=== PATIENT | male | born 1935 | race Caucasian/White ===

== ENCOUNTER 2022-01-01 18:42 | Inpatient (IN) ==
[2022-01-01] MEDS ORDERED: Fluticasone Propionate Nasal 50 MCG/SPRAY BOTTLE NS PRN (22:52)
[2022-01-01] MEDS ORDERED: VISINE TEARS DROPS 15 ML BOTH EYES PRN (22:52)
[2022-01-02] MEDS: *HR* Metformin 500 MG TABLET PO SCH ×2 (08:07→16:16)
[2022-01-02] MEDS: Loratadine 10 MG TABLET PO SCH (09:58)
[2022-01-02] MEDS: Aspirin Enteric Coated 81 MG Tablet PO SCH (09:58)
[2022-01-02] MEDS: Carbidopa/Levodopa 25/100 TABLET PO SCH ×3 (09:59→22:35)
[2022-01-02] MEDS: Fish Oil Omega-3 Softgel PO SCH (10:03)
[2022-01-02] MEDS: Cholecalciferol (D-3) 1,000 UNIT (25MCG) TABLET PO SCH (10:03)
[2022-01-02] MEDS: *HR* Rivaroxaban 15 MG TABLET PO SCH (10:03)
[2022-01-02] MEDS: Losartan/HCTZ 50-12.5 TABLET PO SCH (10:03)
[2022-01-02] MEDS ORDERED: *HR* LORazepam 0.5 MG TABLET PO PRN (14:33)
[2022-01-02] MEDS: Cefdinir 300 MG CAPSULE PO SCH ×2 (16:12→22:35)
[2022-01-02] MEDS ORDERED: *HR* LORazepam 2 MG/ML VIAL IVP ONE (18:19)
[2022-01-02] MEDS ORDERED: *HR* LORazepam 2 MG/ML VIAL ONE (18:22)
[2022-01-03] MEDS ORDERED: Haloperidol Lactate 5 MG/ML VIAL IVP ONE (03:09)
[2022-01-03 08:16] LABS: Basophils % 0.3 %; Eosinophils # 0.1 K/mcL (0.0-0.6); Eosinophils % 1.9 %; Hematocrit 44.6 % (37.5-50.1); Hemoglobin 14.5 g/dL (12.9-16.9); Immature Granulocytes % 0.6 % (0-4); Lymphocytes # 1.4 K/mcL (0.6-4.6); Lymphocytes % 20.5 %; Mean Corpuscular HGB Conc 32.5 g/dL (31.6-35.5); Mean Corpuscular Hemoglobin 26.1 pg (28.0-33.3); Mean Corpuscular Volume 80.4 fL (83.0-100.0); Mean Platelet Volume 10.9 fL (9.4-12.4); Monocytes # 0.6 K/mcL (0.0-1.3); Monocytes % 9.3 %; Neutrophils # 4.6 K/mcL (1.6-8.9); Platelet Count 159 K/mcL (140-400); Red Blood Count 5.55 M/mcL (4.19-5.50); Segmented Neutrophils % 67.4 %; White Blood Count 6.8 K/mcL (4.3-11.1)
[2022-01-03 08:46] LABS: BUN/Creatinine Ratio 30 (6-26); Blood Urea Nitrogen 32 mg/dL (8-23); Calcium 9.4 mg/dL (8.6-10.3); Carbon Dioxide 27 mEq/L (23-29); Chloride 107 mEq/L (98-107); Glucose 97 mg/dL (70-105); Osmolality,Calculated 301 (280-300); Potassium 3.5 mEq/L (3.5-5.1); Sodium 142 mEq/L (136-145); eGFR For African Americans > 60 (> 60); eGFR For Non-African Americans > 60 (> 60)
[2022-01-03] MEDS: *HR* Rivaroxaban 15 MG TABLET PO SCH (10:10)
[2022-01-03] MEDS: Carbidopa/Levodopa 25/100 TABLET PO SCH ×3 (10:10→19:56)
[2022-01-03] MEDS: Aspirin Enteric Coated 81 MG Tablet PO SCH (10:10)
[2022-01-03] MEDS: Losartan/HCTZ 50-12.5 TABLET PO SCH (10:10)
[2022-01-03] MEDS: Loratadine 10 MG TABLET PO SCH (10:11)
[2022-01-03] MEDS: Cholecalciferol (D-3) 1,000 UNIT (25MCG) TABLET PO SCH (10:11)
[2022-01-03] MEDS: Cefdinir 300 MG CAPSULE PO SCH ×2 (10:11→19:55)
[2022-01-03] MEDS: *HR* Metformin 500 MG TABLET PO SCH ×2 (10:13→17:54)
[2022-01-03] MEDS: Fish Oil Omega-3 Softgel PO SCH (10:15)
[2022-01-03] MEDS ORDERED: *HR* Dextrose 50 % in Water (Syg) 50 ML SYRINGE IVP PRN (11:37)
[2022-01-03] MEDS ORDERED: Dextrose 4 GM Chewable Tablets PO PRN ×2 (11:37)
[2022-01-03] MEDS ORDERED: D5% in Water 1,000 ML IVC PRN (11:37)
[2022-01-03] MEDS: Insulin LISPRO 300 UNITS/3 ML VIAL SUBQ SCH ×2 (17:46→19:59)
[2022-01-03] MEDS: QUEtiapine Fumarate 25 MG TABLET PO SCH (20:01)
[2022-01-04] MEDS: Insulin LISPRO 300 UNITS/3 ML VIAL SUBQ SCH ×4 (07:32→20:09)
[2022-01-04] MEDS: Aspirin Enteric Coated 81 MG Tablet PO SCH (08:47)
[2022-01-04] MEDS: Loratadine 10 MG TABLET PO SCH (08:48)
[2022-01-04] MEDS: Cefdinir 300 MG CAPSULE PO SCH ×2 (08:48→20:07)
[2022-01-04] MEDS: Losartan/HCTZ 50-12.5 TABLET PO SCH (08:48)
[2022-01-04] MEDS: Carbidopa/Levodopa 25/100 TABLET PO SCH ×3 (08:48→20:08)
[2022-01-04] MEDS: *HR* Metformin 500 MG TABLET PO SCH ×2 (08:49→16:47)
[2022-01-04] MEDS: Cholecalciferol (D-3) 1,000 UNIT (25MCG) TABLET PO SCH (08:49)
[2022-01-04] MEDS: *HR* Rivaroxaban 15 MG TABLET PO SCH (08:50)
[2022-01-04] MEDS: Fish Oil Omega-3 Softgel PO SCH (08:51)
[2022-01-04] MEDS: QUEtiapine Fumarate 25 MG TABLET PO SCH (20:07)
[2022-01-04 21:57] LABS: Bilirubin,Urine Negative (Negative); Blood,Urine Trace-intact (Negative); Clarity,Urine Clear (Clear); Color,Urine Yellow (Yellow); Glucose,Urine (UA) Normal (Normal); Ketones,Urine Negative (Negative); Leukocyte Esterase,Urine Negative (Negative); Nitrite,Urine Negative (Negative); PH,Urine 5.5 pH Units (5.0-8.0); Protein,Urine >=300 mg/dL (Neg-Trace); Specific Gravity,Urine 1.025 (1.010-1.025); Urobilinogen,Urine Normal (Normal)
[2022-01-04 22:17] LABS: Granular Casts,Urine Few per lpf (None Seen)
[2022-01-05] MEDS: Insulin LISPRO 300 UNITS/3 ML VIAL SUBQ SCH ×4 (08:07→20:17)
[2022-01-05] MEDS: Losartan/HCTZ 50-12.5 TABLET PO SCH (09:38)
[2022-01-05] MEDS: Carbidopa/Levodopa 25/100 TABLET PO SCH ×3 (09:39→20:17)
[2022-01-05] MEDS: *HR* Metformin 500 MG TABLET PO SCH ×2 (09:39→15:36)
[2022-01-05] MEDS: Cefdinir 300 MG CAPSULE PO SCH ×2 (09:39→20:17)
[2022-01-05] MEDS: Cholecalciferol (D-3) 1,000 UNIT (25MCG) TABLET PO SCH (09:40)
[2022-01-05] MEDS: Loratadine 10 MG TABLET PO SCH (09:40)
[2022-01-05] MEDS: Fish Oil Omega-3 Softgel PO SCH (09:47)
[2022-01-05] MEDS: *HR* Rivaroxaban 15 MG TABLET PO SCH (10:00)
[2022-01-05] MEDS: Aspirin Enteric Coated 81 MG Tablet PO SCH (10:00)
[2022-01-05 10:28] LABS: Basophils % 0.5 %; Eosinophils # 0.2 K/mcL (0.0-0.6); Hematocrit 46.9 % (37.5-50.1); Hemoglobin 14.8 g/dL (12.9-16.9); Immature Granulocytes % 1.1 % (0-4); Lymphocytes # 2.1 K/mcL (0.6-4.6); Lymphocytes % 28.6 %; Mean Corpuscular HGB Conc 31.6 g/dL (31.6-35.5); Mean Corpuscular Hemoglobin 25.9 pg (28.0-33.3); Mean Platelet Volume 11.7 fL (9.4-12.4); Monocytes # 0.6 K/mcL (0.0-1.3); Monocytes % 8.6 %; Neutrophils # 4.3 K/mcL (1.6-8.9); Platelet Count 196 K/mcL (140-400); Red Blood Count 5.72 M/mcL (4.19-5.50); Red Cell Distribution Width 14.2 % (11.5-14.5); Segmented Neutrophils % 58.2 %; White Blood Count 7.3 K/mcL (4.3-11.1)
[2022-01-05 10:48] LABS: Calcium 9.7 mg/dL (8.6-10.3); Potassium 3.8 mEq/L (3.5-5.1)
[2022-01-05] MEDS: Acetaminophen 325 MG TABLET PO PRN (15:36)
[2022-01-05] MEDS: QUEtiapine Fumarate 25 MG TABLET PO SCH (20:17)
[2022-01-06] MEDS: Insulin LISPRO 300 UNITS/3 ML VIAL SUBQ SCH ×4 (07:14→20:40)
[2022-01-06 07:32] LABS: Hematocrit 40.8 % (37.5-50.1); Hemoglobin 13.2 g/dL (12.9-16.9); Mean Corpuscular HGB Conc 32.4 g/dL (31.6-35.5); Mean Corpuscular Hemoglobin 26.1 pg (28.0-33.3); Mean Corpuscular Volume 80.8 fL (83.0-100.0); Mean Platelet Volume 11.3 fL (9.4-12.4); Platelet Count 167 K/mcL (140-400); Red Blood Count 5.05 M/mcL (4.19-5.50); Red Cell Distribution Width 13.9 % (11.5-14.5); White Blood Count 5.5 K/mcL (4.3-11.1)
[2022-01-06] MEDS: Acetaminophen 325 MG TABLET PO PRN (08:36)
[2022-01-06] MEDS: Losartan/HCTZ 50-12.5 TABLET PO SCH (08:36)
[2022-01-06] MEDS: Loratadine 10 MG TABLET PO SCH (08:36)
[2022-01-06] MEDS: Cefdinir 300 MG CAPSULE PO SCH (08:36)
[2022-01-06] MEDS: *HR* Metformin 500 MG TABLET PO SCH ×2 (08:37→15:39)
[2022-01-06] MEDS: Cholecalciferol (D-3) 1,000 UNIT (25MCG) TABLET PO SCH (08:37)
[2022-01-06] MEDS: Carbidopa/Levodopa 25/100 TABLET PO SCH ×3 (08:37→21:19)
[2022-01-06] MEDS: Fish Oil Omega-3 Softgel PO SCH (08:47)
[2022-01-06 09:34] LABS: BUN/Creatinine Ratio 29 (6-26); Blood Urea Nitrogen 38 mg/dL (8-23); Calcium 9.3 mg/dL (8.6-10.3); Carbon Dioxide 29 mEq/L (23-29); Chloride 105 mEq/L (98-107); Glucose 90 mg/dL (70-105); Osmolality,Calculated 301 (280-300); Potassium 3.7 mEq/L (3.5-5.1); Sodium 141 mEq/L (136-145); eGFR For African Americans > 60 (> 60); eGFR For Non-African Americans 52 (> 60)
[2022-01-06] MEDS: QUEtiapine Fumarate 25 MG TABLET PO SCH (21:19)
[2022-01-07] MEDS: Losartan/HCTZ 50-12.5 TABLET PO SCH (08:27)
[2022-01-07] MEDS: *HR* Metformin 500 MG TABLET PO SCH ×2 (08:27→17:50)
[2022-01-07] MEDS: Cholecalciferol (D-3) 1,000 UNIT (25MCG) TABLET PO SCH (08:28)
[2022-01-07] MEDS: Carbidopa/Levodopa 25/100 TABLET PO SCH ×3 (08:28→22:10)
[2022-01-07] MEDS: Loratadine 10 MG TABLET PO SCH (08:28)
[2022-01-07] MEDS: Fish Oil Omega-3 Softgel PO SCH (08:28)
[2022-01-07] MEDS: Aspirin Enteric Coated 81 MG Tablet PO SCH (08:29)
[2022-01-07] MEDS: Insulin LISPRO 300 UNITS/3 ML VIAL SUBQ SCH ×4 (08:29→22:11)
[2022-01-07 08:55] LABS: Hematocrit 44.3 % (37.5-50.1); Hemoglobin 14.4 g/dL (12.9-16.9); Mean Corpuscular HGB Conc 32.5 g/dL (31.6-35.5); Mean Corpuscular Hemoglobin 26.3 pg (28.0-33.3); Platelet Count 204 K/mcL (140-400); Red Blood Count 5.47 M/mcL (4.19-5.50); Red Cell Distribution Width 13.8 % (11.5-14.5); White Blood Count 7.1 K/mcL (4.3-11.1)
[2022-01-07] MEDS: QUEtiapine Fumarate 25 MG TABLET PO SCH (22:10)
[2022-01-08] MEDS: Insulin LISPRO 300 UNITS/3 ML VIAL SUBQ SCH ×4 (11:24→21:22)
[2022-01-08] MEDS: Losartan/HCTZ 50-12.5 TABLET PO SCH (11:43)
[2022-01-08] MEDS: Carbidopa/Levodopa 25/100 TABLET PO SCH ×3 (11:43→21:24)
[2022-01-08] MEDS: *HR* Metformin 500 MG TABLET PO SCH ×2 (11:44→16:50)
[2022-01-08] MEDS: Fish Oil Omega-3 Softgel PO SCH (11:44)
[2022-01-08] MEDS: Cholecalciferol (D-3) 1,000 UNIT (25MCG) TABLET PO SCH (11:44)
[2022-01-08] MEDS: Loratadine 10 MG TABLET PO SCH (11:44)
[2022-01-08] MEDS: QUEtiapine Fumarate 25 MG TABLET PO SCH (21:25)
[2022-01-09] MEDS: Insulin LISPRO 300 UNITS/3 ML VIAL SUBQ SCH ×4 (07:50→20:10)
[2022-01-09] MEDS: *HR* Metformin 500 MG TABLET PO SCH ×2 (08:09→17:04)
[2022-01-09] MEDS: Cholecalciferol (D-3) 1,000 UNIT (25MCG) TABLET PO SCH (08:10)
[2022-01-09] MEDS: Loratadine 10 MG TABLET PO SCH (08:10)
[2022-01-09] MEDS: Carbidopa/Levodopa 25/100 TABLET PO SCH ×3 (08:10→20:09)
[2022-01-09] MEDS: Losartan/HCTZ 50-12.5 TABLET PO SCH (08:11)
[2022-01-09] MEDS: Fish Oil Omega-3 Softgel PO SCH (08:12)
[2022-01-09] MEDS: QUEtiapine Fumarate 25 MG TABLET PO SCH (20:09)
[2022-01-10] MEDS: Insulin LISPRO 300 UNITS/3 ML VIAL SUBQ SCH ×4 (07:20→21:52)
[2022-01-10] MEDS: Losartan/HCTZ 50-12.5 TABLET PO SCH (07:36)
[2022-01-10] MEDS: *HR* Metformin 500 MG TABLET PO SCH ×2 (07:36→16:50)
[2022-01-10] MEDS: Carbidopa/Levodopa 25/100 TABLET PO SCH ×4 (07:36→22:08)
[2022-01-10] MEDS: Fish Oil Omega-3 Softgel PO SCH (07:37)
[2022-01-10] MEDS: Loratadine 10 MG TABLET PO SCH (07:37)
[2022-01-10] MEDS: Cholecalciferol (D-3) 1,000 UNIT (25MCG) TABLET PO SCH (07:37)
[2022-01-10] MEDS: QUEtiapine Fumarate 25 MG TABLET PO SCH ×2 (21:52→22:08)
[2022-01-11] MEDS: Losartan/HCTZ 50-12.5 TABLET PO SCH (08:18)
[2022-01-11] MEDS: *HR* Metformin 500 MG TABLET PO SCH ×2 (08:19→16:55)
[2022-01-11] MEDS: Cholecalciferol (D-3) 1,000 UNIT (25MCG) TABLET PO SCH (08:19)
[2022-01-11] MEDS: Loratadine 10 MG TABLET PO SCH (08:20)
[2022-01-11] MEDS: Carbidopa/Levodopa 25/100 TABLET PO SCH ×3 (08:22→21:02)
[2022-01-11] MEDS: Fish Oil Omega-3 Softgel PO SCH (08:24)
[2022-01-11] MEDS: Insulin LISPRO 300 UNITS/3 ML VIAL SUBQ SCH ×4 (08:27→21:05)
[2022-01-11] MEDS: Aspirin Enteric Coated 81 MG Tablet PO SCH (10:00)
[2022-01-11] MEDS: *HR* Rivaroxaban 15 MG TABLET PO SCH (10:00)
[2022-01-11] MEDS: QUEtiapine Fumarate 25 MG TABLET PO SCH (21:02)
[2022-01-12 05:31] LABS: Hematocrit 38.7 % (37.5-50.1); Hemoglobin 12.3 g/dL (12.9-16.9); Mean Corpuscular HGB Conc 31.8 g/dL (31.6-35.5); Mean Corpuscular Hemoglobin 25.6 pg (28.0-33.3); Mean Corpuscular Volume 80.6 fL (83.0-100.0); Mean Platelet Volume 11.4 fL (9.4-12.4); Platelet Count 173 K/mcL (140-400); Red Cell Distribution Width 13.7 % (11.5-14.5); White Blood Count 6.7 K/mcL (4.3-11.1)
[2022-01-12 05:44] LABS: Potassium 3.7 mEq/L (3.5-5.1)
[2022-01-12] MEDS: Losartan/HCTZ 50-12.5 TABLET PO SCH (08:55)
[2022-01-12] MEDS: Loratadine 10 MG TABLET PO SCH (08:55)
[2022-01-12] MEDS: Carbidopa/Levodopa 25/100 TABLET PO SCH ×3 (08:56→20:07)
[2022-01-12] MEDS: *HR* Metformin 500 MG TABLET PO SCH ×2 (08:56→17:10)
[2022-01-12] MEDS: Cholecalciferol (D-3) 1,000 UNIT (25MCG) TABLET PO SCH (08:56)
[2022-01-12] MEDS: Aspirin Enteric Coated 81 MG Tablet PO SCH (08:56)
[2022-01-12] MEDS: *HR* Rivaroxaban 15 MG TABLET PO SCH (08:57)
[2022-01-12] MEDS: Fish Oil Omega-3 Softgel PO SCH (08:59)
[2022-01-12] MEDS: Insulin LISPRO 300 UNITS/3 ML VIAL SUBQ SCH ×4 (08:59→20:08)
[2022-01-12] MEDS: haloperidoL 1 MG TABLET PO PRN (20:06)
[2022-01-12] MEDS: QUEtiapine Fumarate 25 MG TABLET PO SCH (20:07)
[2022-01-13] MEDS ORDERED: haloperidoL 1 MG TABLET PO ONE (01:41)
[2022-01-13] MEDS: Insulin LISPRO 300 UNITS/3 ML VIAL SUBQ SCH ×4 (07:51→21:03)
[2022-01-13] MEDS: Losartan/HCTZ 50-12.5 TABLET PO SCH (09:25)
[2022-01-13] MEDS: Aspirin Enteric Coated 81 MG Tablet PO SCH (09:27)
[2022-01-13] MEDS: Cholecalciferol (D-3) 1,000 UNIT (25MCG) TABLET PO SCH (09:27)
[2022-01-13] MEDS: *HR* Metformin 500 MG TABLET PO SCH ×2 (09:29→16:28)
[2022-01-13] MEDS: Fish Oil Omega-3 Softgel PO SCH (09:29)
[2022-01-13] MEDS: Carbidopa/Levodopa 25/100 TABLET PO SCH ×3 (09:29→21:05)
[2022-01-13] MEDS: *HR* Rivaroxaban 15 MG TABLET PO SCH (09:29)
[2022-01-13] MEDS: Loratadine 10 MG TABLET PO SCH (09:29)
[2022-01-13] MEDS: QUEtiapine Fumarate 25 MG TABLET PO SCH (21:05)
[2022-01-14] MEDS: Insulin LISPRO 300 UNITS/3 ML VIAL SUBQ SCH ×4 (07:45→21:41)
[2022-01-14] MEDS: *HR* Metformin 500 MG TABLET PO SCH ×2 (09:24→16:41)
[2022-01-14] MEDS: Losartan/HCTZ 50-12.5 TABLET PO SCH (09:25)
[2022-01-14] MEDS: Aspirin Enteric Coated 81 MG Tablet PO SCH (09:25)
[2022-01-14] MEDS: *HR* Rivaroxaban 15 MG TABLET PO SCH (09:25)
[2022-01-14] MEDS: Loratadine 10 MG TABLET PO SCH (09:26)
[2022-01-14] MEDS: Cholecalciferol (D-3) 1,000 UNIT (25MCG) TABLET PO SCH (09:26)
[2022-01-14] MEDS: Carbidopa/Levodopa 25/100 TABLET PO SCH ×3 (09:26→21:50)
[2022-01-14] MEDS: Fish Oil Omega-3 Softgel PO SCH (09:29)
[2022-01-14] MEDS: QUEtiapine Fumarate 25 MG TABLET PO SCH (21:51)
[2022-01-15] MEDS: *HR* Metformin 500 MG TABLET PO SCH ×2 (07:40→10:47)
[2022-01-15] MEDS: Carbidopa/Levodopa 25/100 TABLET PO SCH ×4 (07:41→21:41)
[2022-01-15] MEDS: Aspirin Enteric Coated 81 MG Tablet PO SCH ×2 (07:42→10:47)
[2022-01-15] MEDS: Losartan/HCTZ 50-12.5 TABLET PO SCH ×2 (07:42→10:47)
[2022-01-15] MEDS: Cholecalciferol (D-3) 1,000 UNIT (25MCG) TABLET PO SCH ×2 (07:43→10:48)
[2022-01-15] MEDS: *HR* Rivaroxaban 15 MG TABLET PO SCH ×2 (07:43→10:48)
[2022-01-15] MEDS: Fish Oil Omega-3 Softgel PO SCH (07:44)
[2022-01-15] MEDS: Loratadine 10 MG TABLET PO SCH ×2 (07:44→10:47)
[2022-01-15] MEDS: Insulin LISPRO 300 UNITS/3 ML VIAL SUBQ SCH ×4 (07:48→21:47)
[2022-01-15] MEDS: amLODIPine 5 MG TABLET PO SCH (18:40)
[2022-01-15] MEDS: haloperidoL 1 MG TABLET PO PRN (21:42)
[2022-01-15] MEDS: QUEtiapine Fumarate 25 MG TABLET PO SCH (21:43)
[2022-01-16 08:13] LABS: Hematocrit 40.1 % (37.5-50.1); Hemoglobin 12.7 g/dL (12.9-16.9); Mean Corpuscular HGB Conc 31.7 g/dL (31.6-35.5); Mean Corpuscular Hemoglobin 25.8 pg (28.0-33.3); Mean Corpuscular Volume 81.3 fL (83.0-100.0); Mean Platelet Volume 11.2 fL (9.4-12.4); Platelet Count 194 K/mcL (140-400); Red Blood Count 4.93 M/mcL (4.19-5.50); Red Cell Distribution Width 13.8 % (11.5-14.5); White Blood Count 7.7 K/mcL (4.3-11.1)
[2022-01-16 08:31] LABS: BUN/Creatinine Ratio 25 (6-26); Blood Urea Nitrogen 29 mg/dL (8-23); Calcium 9.1 mg/dL (8.6-10.3); Carbon Dioxide 29 mEq/L (23-29); Chloride 106 mEq/L (98-107); Glucose 101 mg/dL (70-105); Osmolality,Calculated 302 (280-300); Potassium 3.8 mEq/L (3.5-5.1); Sodium 143 mEq/L (136-145); eGFR For African Americans > 60 (> 60); eGFR For Non-African Americans 59 (> 60)
[2022-01-16] MEDS: *HR* Metformin 500 MG TABLET PO SCH ×3 (08:34→17:16)
[2022-01-16] MEDS: Insulin LISPRO 300 UNITS/3 ML VIAL SUBQ SCH ×4 (11:08→20:28)
[2022-01-16] MEDS: Aspirin Enteric Coated 81 MG Tablet PO SCH (11:50)
[2022-01-16] MEDS: Cholecalciferol (D-3) 1,000 UNIT (25MCG) TABLET PO SCH (11:50)
[2022-01-16] MEDS: *HR* Rivaroxaban 15 MG TABLET PO SCH (11:51)
[2022-01-16] MEDS: Carbidopa/Levodopa 25/100 TABLET PO SCH ×3 (11:51→20:30)
[2022-01-16] MEDS: amLODIPine 5 MG TABLET PO SCH (11:52)
[2022-01-16] MEDS: Loratadine 10 MG TABLET PO SCH (11:53)
[2022-01-16] MEDS: Fish Oil Omega-3 Softgel PO SCH (11:53)
[2022-01-16] MEDS: haloperidoL 1 MG TABLET PO PRN (20:30)
[2022-01-16] MEDS: QUEtiapine Fumarate 25 MG TABLET PO SCH (20:30)
[2022-01-17] MEDS: Insulin LISPRO 300 UNITS/3 ML VIAL SUBQ SCH ×4 (09:05→20:29)
[2022-01-17] MEDS: Carbidopa/Levodopa 25/100 TABLET PO SCH ×3 (09:06→20:16)
[2022-01-17] MEDS: *HR* Metformin 500 MG TABLET PO SCH ×2 (09:06→15:47)
[2022-01-17] MEDS: Aspirin Enteric Coated 81 MG Tablet PO SCH (09:06)
[2022-01-17] MEDS: amLODIPine 5 MG TABLET PO SCH (09:07)
[2022-01-17] MEDS: Cholecalciferol (D-3) 1,000 UNIT (25MCG) TABLET PO SCH (09:07)
[2022-01-17] MEDS: Fish Oil Omega-3 Softgel PO SCH (09:07)
[2022-01-17] MEDS: *HR* Rivaroxaban 15 MG TABLET PO SCH (09:07)
[2022-01-17] MEDS: Loratadine 10 MG TABLET PO SCH (09:07)
[2022-01-17] MEDS: QUEtiapine Fumarate 25 MG TABLET PO SCH (20:15)
[2022-01-17] MEDS: haloperidoL 1 MG TABLET PO PRN (20:16)
[2022-01-18] MEDS: *HR* Rivaroxaban 15 MG TABLET PO SCH (10:39)
[2022-01-18] MEDS: Carbidopa/Levodopa 25/100 TABLET PO SCH ×3 (10:39→20:33)
[2022-01-18] MEDS: Aspirin Enteric Coated 81 MG Tablet PO SCH (10:39)
[2022-01-18] MEDS: amLODIPine 5 MG TABLET PO SCH (10:40)
[2022-01-18] MEDS: Loratadine 10 MG TABLET PO SCH (10:40)
[2022-01-18] MEDS: Cholecalciferol (D-3) 1,000 UNIT (25MCG) TABLET PO SCH (10:40)
[2022-01-18] MEDS: *HR* Metformin 500 MG TABLET PO SCH ×2 (10:40→17:08)
[2022-01-18] MEDS: Fish Oil Omega-3 Softgel PO SCH (10:41)
[2022-01-18] MEDS: Insulin LISPRO 300 UNITS/3 ML VIAL SUBQ SCH ×4 (10:41→20:26)
[2022-01-18] MEDS: Acetaminophen 325 MG TABLET PO PRN (20:30)
[2022-01-18] MEDS: QUEtiapine Fumarate 25 MG TABLET PO SCH (20:31)
[2022-01-18] MEDS: haloperidoL 1 MG TABLET PO PRN (20:34)
[2022-01-19] MEDS: Insulin LISPRO 300 UNITS/3 ML VIAL SUBQ SCH ×4 (09:04→21:31)
[2022-01-19] MEDS: *HR* Rivaroxaban 15 MG TABLET PO SCH (09:11)
[2022-01-19] MEDS: Aspirin Enteric Coated 81 MG Tablet PO SCH (09:12)
[2022-01-19] MEDS: amLODIPine 5 MG TABLET PO SCH (09:12)
[2022-01-19] MEDS: Loratadine 10 MG TABLET PO SCH (09:12)
[2022-01-19] MEDS: Cholecalciferol (D-3) 1,000 UNIT (25MCG) TABLET PO SCH (09:12)
[2022-01-19] MEDS: Carbidopa/Levodopa 25/100 TABLET PO SCH ×3 (09:13→19:57)
[2022-01-19] MEDS: Fish Oil Omega-3 Softgel PO SCH (09:13)
[2022-01-19] MEDS: *HR* Metformin 500 MG TABLET PO SCH ×2 (09:13→15:49)
[2022-01-19] MEDS: Acetaminophen 325 MG TABLET PO PRN (19:55)
[2022-01-19] MEDS: QUEtiapine Fumarate 25 MG TABLET PO SCH (19:58)
[2022-01-19] MEDS: haloperidoL 1 MG TABLET PO PRN (19:58)
[2022-01-20] MEDS: Insulin LISPRO 300 UNITS/3 ML VIAL SUBQ SCH ×4 (07:29→20:51)
[2022-01-20] MEDS: *HR* Metformin 500 MG TABLET PO SCH ×2 (08:53→16:08)
[2022-01-20] MEDS: amLODIPine 5 MG TABLET PO SCH (08:54)
[2022-01-20] MEDS: *HR* Rivaroxaban 15 MG TABLET PO SCH (08:55)
[2022-01-20] MEDS: Loratadine 10 MG TABLET PO SCH (08:55)
[2022-01-20] MEDS: Aspirin Enteric Coated 81 MG Tablet PO SCH (08:55)
[2022-01-20] MEDS: Cholecalciferol (D-3) 1,000 UNIT (25MCG) TABLET PO SCH (08:55)
[2022-01-20] MEDS: Carbidopa/Levodopa 25/100 TABLET PO SCH ×3 (08:55→20:44)
[2022-01-20] MEDS: Fish Oil Omega-3 Softgel PO SCH (08:56)
[2022-01-20 09:34] LABS: Hematocrit 36.8 % (37.5-50.1); Hemoglobin 11.4 g/dL (12.9-16.9); Mean Corpuscular Hemoglobin 25.7 pg (28.0-33.3); Mean Corpuscular Volume 83.1 fL (83.0-100.0); Mean Platelet Volume 11.1 fL (9.4-12.4); Platelet Count 197 K/mcL (140-400); Red Blood Count 4.43 M/mcL (4.19-5.50); Red Cell Distribution Width 14.3 % (11.5-14.5); White Blood Count 5.6 K/mcL (4.3-11.1)
[2022-01-20] MEDS: Acetaminophen 325 MG TABLET PO PRN (20:46)
[2022-01-20] MEDS: haloperidoL 1 MG TABLET PO PRN (20:46)
[2022-01-20] MEDS: QUEtiapine Fumarate 25 MG TABLET PO SCH (20:48)
[2022-01-21] MEDS: Insulin LISPRO 300 UNITS/3 ML VIAL SUBQ SCH ×3 (07:44→17:16)
[2022-01-21] MEDS: Cholecalciferol (D-3) 1,000 UNIT (25MCG) TABLET PO SCH (08:40)
[2022-01-21] MEDS: amLODIPine 5 MG TABLET PO SCH (08:41)
[2022-01-21] MEDS: *HR* Metformin 500 MG TABLET PO SCH ×2 (08:41→16:03)
[2022-01-21] MEDS: Loratadine 10 MG TABLET PO SCH (08:41)
[2022-01-21] MEDS: *HR* Rivaroxaban 15 MG TABLET PO SCH (08:41)
[2022-01-21] MEDS: Aspirin Enteric Coated 81 MG Tablet PO SCH (08:42)
[2022-01-21] MEDS: Carbidopa/Levodopa 25/100 TABLET PO SCH ×3 (08:42→23:10)
[2022-01-21] MEDS: Fish Oil Omega-3 Softgel PO SCH (08:42)
[2022-01-21] MEDS ORDERED: Lidocaine Jelly 6ml 1 APPL/6 ML JEL.PF.APP TP ONE (15:11)
[2022-01-21] MEDS: QUEtiapine Fumarate 25 MG TABLET PO SCH (23:10)
[2022-01-22] MEDS: Insulin LISPRO 300 UNITS/3 ML VIAL SUBQ SCH ×5 (00:05→21:16)
[2022-01-22] MEDS: amLODIPine 5 MG TABLET PO SCH (07:56)
[2022-01-22] MEDS: Loratadine 10 MG TABLET PO SCH (07:56)
[2022-01-22] MEDS: Acetaminophen 325 MG TABLET PO PRN (07:56)
[2022-01-22] MEDS: *HR* Rivaroxaban 15 MG TABLET PO SCH (07:56)
[2022-01-22] MEDS: Aspirin Enteric Coated 81 MG Tablet PO SCH (07:56)
[2022-01-22] MEDS: Cholecalciferol (D-3) 1,000 UNIT (25MCG) TABLET PO SCH (07:56)
[2022-01-22] MEDS: Carbidopa/Levodopa 25/100 TABLET PO SCH ×3 (07:57→21:20)
[2022-01-22] MEDS: *HR* Metformin 500 MG TABLET PO SCH ×2 (07:57→17:17)
[2022-01-22] MEDS: Fish Oil Omega-3 Softgel PO SCH (12:22)
[2022-01-22] MEDS: QUEtiapine Fumarate 25 MG TABLET PO SCH (21:19)
[2022-01-23] MEDS: Insulin LISPRO 300 UNITS/3 ML VIAL SUBQ SCH ×4 (07:39→20:33)
[2022-01-23] MEDS: Loratadine 10 MG TABLET PO SCH (07:42)
[2022-01-23] MEDS: *HR* Metformin 500 MG TABLET PO SCH ×2 (07:42→16:16)
[2022-01-23] MEDS: Cholecalciferol (D-3) 1,000 UNIT (25MCG) TABLET PO SCH (07:43)
[2022-01-23] MEDS: amLODIPine 5 MG TABLET PO SCH (07:43)
[2022-01-23] MEDS: Carbidopa/Levodopa 25/100 TABLET PO SCH ×3 (07:43→20:37)
[2022-01-23] MEDS: Aspirin Enteric Coated 81 MG Tablet PO SCH (07:43)
[2022-01-23] MEDS: *HR* Rivaroxaban 15 MG TABLET PO SCH (07:43)
[2022-01-23] MEDS: Fish Oil Omega-3 Softgel PO SCH (07:49)
[2022-01-23] MEDS: QUEtiapine Fumarate 25 MG TABLET PO SCH (20:38)
[2022-01-24] MEDS: Insulin LISPRO 300 UNITS/3 ML VIAL SUBQ SCH ×4 (07:25→19:59)
[2022-01-24] MEDS: Cholecalciferol (D-3) 1,000 UNIT (25MCG) TABLET PO SCH (08:27)
[2022-01-24] MEDS: Loratadine 10 MG TABLET PO SCH (08:27)
[2022-01-24] MEDS: Carbidopa/Levodopa 25/100 TABLET PO SCH ×3 (08:27→19:53)
[2022-01-24] MEDS: Aspirin Enteric Coated 81 MG Tablet PO SCH (08:27)
[2022-01-24] MEDS: *HR* Rivaroxaban 15 MG TABLET PO SCH (08:27)
[2022-01-24] MEDS: *HR* Metformin 500 MG TABLET PO SCH ×2 (08:28→16:26)
[2022-01-24] MEDS: Fish Oil Omega-3 Softgel PO SCH (08:28)
[2022-01-24] MEDS: amLODIPine 5 MG TABLET PO SCH (08:28)
[2022-01-24] MEDS: QUEtiapine Fumarate 25 MG TABLET PO SCH (19:53)
[2022-01-25] MEDS: Insulin LISPRO 300 UNITS/3 ML VIAL SUBQ SCH ×4 (07:24→19:46)
[2022-01-25] MEDS: amLODIPine 5 MG TABLET PO SCH (08:41)
[2022-01-25] MEDS: Fish Oil Omega-3 Softgel PO SCH (08:41)
[2022-01-25] MEDS: Loratadine 10 MG TABLET PO SCH (08:41)
[2022-01-25] MEDS: *HR* Metformin 500 MG TABLET PO SCH ×2 (08:41→16:46)
[2022-01-25] MEDS: Carbidopa/Levodopa 25/100 TABLET PO SCH ×3 (08:41→19:56)
[2022-01-25] MEDS: *HR* Rivaroxaban 15 MG TABLET PO SCH (08:41)
[2022-01-25] MEDS: Cholecalciferol (D-3) 1,000 UNIT (25MCG) TABLET PO SCH (08:41)
[2022-01-25] MEDS: Aspirin Enteric Coated 81 MG Tablet PO SCH (08:41)
[2022-01-25] MEDS: QUEtiapine Fumarate 25 MG TABLET PO SCH (19:56)
[2022-01-26] MEDS: Insulin LISPRO 300 UNITS/3 ML VIAL SUBQ SCH ×4 (08:13→20:19)
[2022-01-26] MEDS: amLODIPine 5 MG TABLET PO SCH (08:55)
[2022-01-26] MEDS: Cholecalciferol (D-3) 1,000 UNIT (25MCG) TABLET PO SCH (08:55)
[2022-01-26] MEDS: *HR* Rivaroxaban 15 MG TABLET PO SCH (08:55)
[2022-01-26] MEDS: Aspirin Enteric Coated 81 MG Tablet PO SCH (08:56)
[2022-01-26] MEDS: *HR* Metformin 500 MG TABLET PO SCH ×2 (08:56→17:05)
[2022-01-26] MEDS: Carbidopa/Levodopa 25/100 TABLET PO SCH ×3 (08:56→20:19)
[2022-01-26] MEDS: Loratadine 10 MG TABLET PO SCH (08:57)
[2022-01-26] MEDS: Fish Oil Omega-3 Softgel PO SCH (08:57)
[2022-01-26] MEDS: QUEtiapine Fumarate 25 MG TABLET PO SCH (20:18)
[2022-01-27] MEDS: Insulin LISPRO 300 UNITS/3 ML VIAL SUBQ SCH ×4 (07:26→20:36)
[2022-01-27] MEDS: Cholecalciferol (D-3) 1,000 UNIT (25MCG) TABLET PO SCH (09:06)
[2022-01-27] MEDS: amLODIPine 5 MG TABLET PO SCH (09:06)
[2022-01-27] MEDS: Aspirin Enteric Coated 81 MG Tablet PO SCH (09:06)
[2022-01-27] MEDS: *HR* Metformin 500 MG TABLET PO SCH ×2 (09:07→16:42)
[2022-01-27] MEDS: *HR* Rivaroxaban 15 MG TABLET PO SCH (09:07)
[2022-01-27] MEDS: Loratadine 10 MG TABLET PO SCH (09:07)
[2022-01-27] MEDS: Carbidopa/Levodopa 25/100 TABLET PO SCH ×3 (09:07→20:35)
[2022-01-27] MEDS: Fish Oil Omega-3 Softgel PO SCH (09:08)
[2022-01-27 20:27] VITALS: O2SAT 92
[2022-01-27] MEDS: Acetaminophen 325 MG TABLET PO PRN (20:35)
[2022-01-27] MEDS: QUEtiapine Fumarate 25 MG TABLET PO SCH (20:35)
[2022-01-28 07:12] VITALS: BP 147/81; PULSE 64; RESP 16; TEMP 97.3
[2022-01-28] MEDS: Insulin LISPRO 300 UNITS/3 ML VIAL SUBQ SCH (07:23)
[2022-01-28] MEDS: Aspirin Enteric Coated 81 MG Tablet PO SCH (08:44)
[2022-01-28] MEDS: Loratadine 10 MG TABLET PO SCH (08:44)
[2022-01-28] MEDS: amLODIPine 5 MG TABLET PO SCH (08:44)
[2022-01-28] MEDS: Cholecalciferol (D-3) 1,000 UNIT (25MCG) TABLET PO SCH (08:44)
[2022-01-28] MEDS: *HR* Rivaroxaban 15 MG TABLET PO SCH (08:44)
[2022-01-28] MEDS: Carbidopa/Levodopa 25/100 TABLET PO SCH (08:44)
[2022-01-28] MEDS: Fish Oil Omega-3 Softgel PO SCH (08:45)
[2022-01-28] MEDS: *HR* Metformin 500 MG TABLET PO SCH (08:45)
== END 2022-01-28 11:30 | disposition home health service (06) | DRG 65 ==
LOC: SUATTDRO 21:34 → INPPIK 21:34
PROVIDERS: ADMIT Internal Medicine; ATTEND Family Medicine